=== PATIENT | male | born 1990 | race American Indian/Alaskan Native ===

== ENCOUNTER 2019-06-29 17:27 | Emergency (ER) | payer SELFPAY ==
--- NOTE | 2019-06-29 20:34 | Emergency Department Report ---
ED General Adult HPI - General Chief complaint: Skin Rash Stated complaint: SKIN IRRIATATION/SCALY Source: patient Mode of arrival: Ambulatory Limitations: No Limitations - History of Present Illness Initial comments: Patient is a 29-year-old male with no past medical history who presents to the ED with complaint of diffuse erythematous rashes for the last 2 months, worse in the last 1 week. Patient denies fever, chills, nausea, vomiting, headache, chest pain or shortness of breath, swollen lips or tongue or dysphagia and dysphonia, diarrhea or abdominal pain cough or wheezing. MD Complaint: Itchy rash -: Gradual, month(s) (2) Location: chest, abdomen, upper extremity, lower extremity Radiation: non-radiation Severity scale (0 -10): 3 Quality: burning, aching Consistency: intermittent Improves with: none Worsens with: none Associated Symptoms: denies other symptoms, rash. denies: confusion, chest pain, cough, diaphoresis, fever/chills, headaches, loss of appetite, malaise, seizure, shortness of breath, syncope - Related Data Previous Rx's Medication Instructions Recorded Last Taken Type Terbinafine (Nf) [LamiSIL] 250 mg PO QDAY #14 tablet 06/29/19 Unknown Rx diphenhydrAMINE [Benadryl CAP] 25 mg PO Q6HR PRN #30 capsule 06/29/19 Unknown Rx Allergies Allergy/AdvReac Type Severity Reaction Status Date / Time penicillin V Allergy Swelling Verified 06/29/19 17:30 ED Review of Systems ROS: Stated complaint: SKIN IRRIATATION/SCALY Other details as noted in HPI Constitutional: denies: chills, fever Eyes: denies: eye pain, eye discharge, vision change ENT: denies: ear pain, throat pain Respiratory: denies: cough, shortness of breath, wheezing Cardiovascular: denies: chest pain, palpitations Endocrine: no symptoms reported Gastrointestinal: denies: abdominal pain, nausea, diarrhea Genitourinary: denies: urgency, dysuria Musculoskeletal: denies: back pain, joint swelling, arthralgia Skin: rash, pruritus, other (Itchy erythematous dry scaly rash). denies: lesions Neurological: denies: headache, weakness, paresthesias Psychiatric: denies: anxiety, depression Hematological/Lymphatic: denies: easy bleeding, easy bruising ED Past Medical Hx - Past Medical History Previous Medical History?: No - Surgical History Past Surgical History?: Yes Additional Surgical History: hernia as child - Social History Smoking Status: Never Smoker Substance Use Type: None - Medications Home Medications: Home Medications Medication Instructions Recorded Confirmed Last Taken Type Terbinafine (Nf) [LamiSIL] 250 mg PO QDAY #14 tablet 06/29/19 Unknown Rx diphenhydrAMINE [Benadryl CAP] 25 mg PO Q6HR PRN #30 capsule 06/29/19 Unknown Rx ED Physical Exam - General Limitations: No Limitations General appearance: alert, in no apparent distress - Head Head exam: Present: atraumatic, normocephalic, normal inspection - Eye Eye exam: Present: normal appearance, PERRL, EOMI Pupils: Present: normal accommodation - ENT ENT exam: Present: normal exam, normal orophraynx, mucous membranes moist, TM's normal bilaterally, normal external ear exam - Neck Neck exam: Present: normal inspection, full ROM - Respiratory Respiratory exam: Present: normal lung sounds bilaterally. Absent: respiratory distress, wheezes, rales, stridor, chest wall tenderness, accessory muscle use - Cardiovascular Cardiovascular Exam: Present: regular rate, normal rhythm, normal heart sounds. Absent: systolic murmur, diastolic murmur, rubs, gallop - GI/Abdominal GI/Abdominal exam: Present: soft, normal bowel sounds. Absent: tenderness, guarding, hyperactive bowel sounds, hypoactive bowel sounds - Extremities Exam Extremities exam: Present: normal inspection, full ROM, normal capillary refill - Back Exam Back exam: Present: normal inspection, full ROM. Absent: tenderness, CVA tenderness (R), CVA tenderness (L), muscle spasm, paraspinal tenderness - Neurological Exam Neurological exam: Present: alert, oriented X3, CN II-XII intact, normal gait, reflexes normal - Psychiatric Psychiatric exam: Present: normal affect, normal mood - Skin Skin exam: Present: warm, dry, intact, normal color, rash (Erythematous dry scaly rashes diffusely) ED Course Vital Signs 06/29/19 06/29/19 18:00 21:05 Temperature 98.2 F Pulse Rate 88 85 Respiratory 18 18 Rate Blood Pressure 120/79 Blood Pressure 116/79 [Right] O2 Sat by Pulse 97 99 Oximetry ED Medical Decision Making - Medical Decision Making This is a 29-year-old male who presented to the ED with persistent each erythematous maculopapular rash diffusely. In the ED, patient is alert and oriented 3 and is not in distress. Patient was treated in the ED and discharged home on medications and advised follow-up with his primary care physician in 5-7 days for reevaluation or return to the ED immediately if symptoms get worse. - Differential Diagnosis allergic reaction, insect bite; irritant dermatitis Critical care attestation.: If time is entered above; I have spent that time in minutes in the direct care of this critically ill patient, excluding procedure time. ED Disposition Clinical Impression: Tinea corporis, Itching with irritation Disposition: DC- TO HOME OR SELFCARE Is pt being admited?: No Does the pt Need Aspirin: No Condition: Stable Instructions: Tinea Corporis (ED), Itchy Skin (ED) Additional Instructions: Take medications with food, drink plenty of fluids and follow up with your Primary Care physician in 7-10 days for reevaluation. Return to the ED immediately if symptoms get worse Prescriptions: diphenhydrAMINE [Benadryl CAP] 25 mg PO Q6HR PRN #30 capsule PRN Reason: Itching Terbinafine (Nf) [LamiSIL] 250 mg PO QDAY #14 tablet Referrals: [facility] [Outside] - 3-5 Days Time of Disposition: 20:34 Print Language: CHINESE
[2019-06-29 21:16] VITALS: BP 116/79
== END 2019-06-29 21:05 | disposition home or self-care (01) ==
LOC: ED 17:27
DX: B35.4 Tinea corporis (principal); Z88.0 Allergy status to penicillin; Z79.899 Other long term (current) drug therapy
CPT/HCPCS: 99281